=== PATIENT | female | born 1990 | race Caucasian/White ===

== ENCOUNTER 2020-07-01 17:29 | Emergency (ER) | payer SELFPAY ==
[2020-07-01 17:32] VITALS: BP 141/96; PULSE 72; RESP 15; TEMP 36.9; O2SAT 99; BMI 29.7
--- NOTE | 2020-07-01 18:32 | ED.BACK ---
HPI - Back Pain/Injury General Chief Complaint: Back Pain/Injury Stated Complaint: LOWER BACK PAIN Time Seen by Provider: 07/01/20 18:32 History of Present Illness HPI Narrative: patient complains of back pain for the last 3 days with no injury, there is no radiation of the pain no numbness or weakness no urinary symptoms no injury Related Data Previous Rx's Medication Instructions Recorded acetaminophen [Tylenol] 650 mg PO Q6H PRN #30 cap 07/01/20 cyclobenzaprine 5 mg PO TID PRN #14 tab 07/01/20 ibuprofen 600 mg PO Q6H PRN #20 tab 07/01/20 Allergies Allergy/AdvReac Type Severity Reaction Status Date / Time cefaclor [From Ceclor] Allergy Unknown HIVES Verified 07/01/20 17:55 Ceclor Allergy Unknown Hives Uncoded 07/01/20 17:55 Review of Systems Review of Systems: there is no headache, no neck pain, no chest pain, no abdominal pain, no changes to bowel or bladder no pain with urination, no numbness no weakness no tingling PMFSH Past Medical History Source: nursing notes reviewed Medical History (Updated 07/01/20 @ 18:41 by BREE Boone) No known health problems Social History Social History Smoking Status: Never smoker Use of substances other than those prescribed or required for medical reasons: No Advance Directives: No Advance Directives Information Provided: Yes Physical Exam Vital Signs and I&O and Narrative: Vital Signs and I&O: Vital Signs Temp 98.4 F 07/01/20 17:32 Pulse 72 07/01/20 17:32 Resp 15 07/01/20 17:32 BP 141/96 H 07/01/20 17:32 Pulse Ox 99 07/01/20 17:32 Intake & Output 07/01/20 07/01/20 07/02/20 06:59 18:59 06:59 Weight 76.204 kg Body Mass Index 29.7 the patient is A&O x3, no acute distress The head is normocephalic atraumatic The neck is supple and nontender Respiratory there is no respiratory distress Abdomen is soft and nontender The back has bilateral paraspinal lower lumbar soft tissue tenderness, no bony tenderness no CVA tenderness, skin is normal with no redness or swelling, no wounds no bruising The extremities are full range of motion x4 the neuro is a and O x3, no motor deficit, no numbness Discharge Plan Discharge Clinical Impression: Back pain Qualifiers: Back pain location: low back pain Chronicity: unspecified Back pain laterality: bilateral Sciatica presence: without sciatica Qualified Code(s): M54.5 - Low back pain Patient Disposition: Home, Self-Care Additional Instructions: follow with primary care doctor for possible physical therapy or ongoing treatment as needed Chiropractor, massage, acupuncture are often helpful Return any worse condition or concerns Prescriptions: New ibuprofen 600 mg tablet 600 mg PO Q6H PRN (Reason: pain) Qty: 20 RF: 0 acetaminophen [Tylenol] 325 mg capsule 650 mg PO Q6H PRN (Reason: pain) Qty: 30 RF: 0 cyclobenzaprine 5 mg tablet 5 mg PO TID PRN (Reason: muscle spasm) Qty: 14 RF: 0 Stand Alone Forms: Work/School Release Interventions: ED Discharge Assessment Last Done: 07/01/20 18:47 Discharge Date/Time: 07/01/20 18:47
== END 2020-07-01 18:47 | disposition home or self-care (01) ==
PROVIDERS: Emergency Provider Internal Medicine
DX: M54.42 Lumbago with sciatica, left side (principal); M54.41 Lumbago with sciatica, right side
CPT/HCPCS: 99283; 99284

== ENCOUNTER 2020-10-10 17:24 | Emergency (ER) | payer OTHER, SELFPAY ==
--- NOTE | 2020-10-10 | XR_ITS ---
EXAMINATION: XR FINGER, RIGHT CLINICAL INFORMATION: Thumb laceration COMPARISON: None TECHNIQUE: 3 plain film views of the right thumb. FINDINGS: Bones are normal anatomic alignment. I do not appreciate any acute displaced fracture. No cortical disruption or trabecular irregularity. The joint spaces do not appear to be abnormally widened or irregular. Surrounding soft tissues unremarkable. No radiopaque foreign body seen. XR/XR finger RT min 2V IMPRESSION: No acute bony abnormality.
[2020-10-10 19:27] VITALS: BP 152/71; PULSE 79; RESP 18; TEMP 36.4; O2SAT 99; BMI 30.2
--- NOTE | 2020-10-10 19:38 | ED.WOUNDLAC ---
HPI - Wound/Laceration General Chief Complaint: Wound/Laceration Stated Complaint: Laceration Time Seen by Provider: 10/10/20 19:20 Source: patient Mode of arrival: ambulatory Limitations: no limitations History of Present Illness HPI narrative: Patient comes emergency room complaining of a laceration to the right thumb in the palmar aspect. Patient states that she was slicing onions, and accidentally run her finger through the sharp edges of the slicer Related Data Previous Rx's Medication Instructions Recorded acetaminophen [Tylenol] 650 mg PO Q6H PRN #30 cap 07/01/20 cyclobenzaprine 5 mg PO TID PRN #14 tab 07/01/20 ibuprofen 600 mg PO Q6H PRN #20 tab 07/01/20 Allergies Allergy/AdvReac Type Severity Reaction Status Date / Time cefaclor [From Ceclor] Allergy Unknown HIVES Verified 10/10/20 19:27 Ceclor Allergy Unknown Hives Uncoded 07/01/20 17:55 Review of Systems Review of Systems: Constitutional : No Weight loss, No Fever, No Chills, No Night Sweats, No Fatigue, No Malaise ENT/Mouth : No Hearing loss, No Ear Pain, No Nasal Congestion, No Sinus Pain, No Hoarseness, No sore throat, No Rhinorrhea, No Swallowing Difficulty Eyes: No Eye Pain, No Swelling, No Redness, No Foreign Body, No Discharge, No Vision Changes Cardiovascular : No Chest Pain, No SOB, No Dyspnea on Exertion, No Orthopnea, No Edema, No Palpitations Respiratory : No Cough, No Sputum, No Wheezing, No Smoke Exposure, No Dyspnea Gastrointestinal : No Nausea, No Vomiting, No Diarrhea, No Constipation, No abdominal Pain, No Hematochezia, No Melena Genitourinary : no irregular bleeding, No Dysuria, No Urinary Frequency, No Hematuria, No Urinary Incontinence, No Urgency, No Flank Pain, No Urinary Flow Changes, No Hesitancy Musculoskeletal : No joint pain, No Myalgias, No Joint Swelling Skin : Laceration to thumb right hand palmar aspect Neuro : No Weakness, No Numbness, No Paresthesias, No Loss of Consciousness, No Dizziness, No Headache Psych : No Anxiety/Panic, No Depression, No SI/HI/AH/VH, No Social Issues, Heme/Lymph: No Bruising, No Bleeding,No Lymphadenopathy Endocrine : No Polyuria, No Polydipsia, No Temperature Intolerance PMF Past Medical History Medical History No known health problems Social History Social History Smoking Status: Never smoker Advance Directives: No Physical Exam Vital Signs: Vital Signs: Last Vital Signs Temp 97.5 F 10/10/20 19:27 Pulse 79 10/10/20 19:27 Resp 18 10/10/20 19:27 BP 152/71 H 10/10/20 19:27 Pulse Ox 99 10/10/20 19:27 Body Mass Index 30.2 Appearance: Alert. Oriented X3. No acute distress. Eyes: Pupils equal, round and reactive to light. ENT: Pharynx normal. Neck: Normal inspection. Neck supple. No lymph nodes noted. No crepitus CVS: Normal heart rate and rhythm. Pulses normal. Normal S1 and S2 Respiratory: No respiratory distress. Breath sounds normal. No Wheezing. No rales Abdomen: Soft and nontender. No rigidity. No distention. good BS x4 Skin: Patient has a triangular laceration/flap on the thumb of their right hand. Patient is able to oppose thumb to all fingers and flex the thumb Extremities: No lower extremity edema. No lower extremity edema. No Lacerations. No Rash Neuro: Oriented X 3. No motor deficit. No sensory deficit. Moving all extermities. No slurred speech. Course Course Course Narrative: Patient tolerated well her procedure, a digital block on the thumb was done 1st, patient received tetanus shot Procedures Laceration Laceration 1: Site: hand Side (If applicable): right Size (cm): 4 Description: flap and irregular Depth: simple, single layer Local Anesthetic: lidocaine 2% Amount of anesthesia used (mL): 6 Pre-repair: irrigated extensively Skin layer closed with: nylon Size (cm): 5-0 Number of sutures: 9 Technique: simple, interrupted Discharge Plan Discharge Clinical Impression: Laceration Patient Disposition: Home, Self-Care Instructions: Finger Laceration (ED) Additional Instructions: If you see any signs of infection such as redness, increased pain, increased swelling, fever, pus drainage, please return to the emergency room. The sutures need to be removed in 7-10 days. Please follow-up with your primary care physician tomorrow. If you have any worsening or new symptoms, please return to the emergency room or call 911 Prescriptions: No Action ibuprofen 600 mg tablet 600 mg PO Q6H PRN (Reason: pain) Qty: 20 RF: 0 acetaminophen [Tylenol] 325 mg capsule 650 mg PO Q6H PRN (Reason: pain) Qty: 30 RF: 0 cyclobenzaprine 5 mg tablet 5 mg PO TID PRN (Reason: muscle spasm) Qty: 14 RF: 0
[2020-10-10] MEDS: Lidocaine HCl 2 % MPF 5 ML VIAL 10 ML INFILTRATI (20:02)
[2020-10-10] MEDS: Acetaminophen 325 MG TABLET 650 MG PO (21:10)
== END 2020-10-10 21:29 | disposition home or self-care (01) ==
PROVIDERS: Emergency Provider Emergency Medicine
DX: S61.011A Laceration without foreign body of right thumb without damage to nail, initial encounter (principal); W27.8XXA Contact with other nonpowered hand tool, initial encounter; Y93.G1 Activity, food preparation and clean up; Y92.010 Kitchen of single-family (private) house as the place of occurrence of the external cause; Y99.9 Unspecified external cause status
CPT/HCPCS: 12002; 73140; 90471; 90715; 99283; 99284

== ENCOUNTER 2021-08-24 14:30 | Emergency (ER) | payer OTHER, SELFPAY ==
--- NOTE | 2021-08-24 | ECG_ITS ---
Test Reason : SOB Blood Pressure : / mmHG Vent. Rate : 091 BPM Atrial Rate : 091 BPM P-R Int : 154 ms QRS Dur : 078 ms QT Int : 358 ms P-R-T Axes : 058 065 032 degrees QTc Int : 440 ms Normal sinus rhythm Normal EKG When compared with ECG of 14-NOV-2016 03:24, No significant change was found Referred By: Generic ED Physician Electronically Signed By:DOREEN FIGUEROA
--- NOTE | ~2021-08-24 | XR_ITS ---
EXAMINATION: XR CHEST CLINICAL INFORMATION: Chest wall pain COMPARISON: November 14, 2016 TECHNIQUE: AP portable view of the chest was obtained. FINDINGS: No significant abnormality is noted involving the heart, lungs, mediastinum, bony thorax or soft tissues. XR/XR chest 1V IMPRESSION: No acute disease.
[2021-08-24 14:49] VITALS: PULSE 92; RESP 18; TEMP 36.9; O2SAT 96; BMI 30.2
[2021-08-24 15:52] LABS: Influenza A PCR NEGATIVE (Negative); Influenza B PCR NEGATIVE (Negative); Resp Syncy Virus RNA Qual PCR NEGATIVE (Negative); SARS COV2 PCR INHOUSE NEGATIVE (Negative)
--- NOTE | 2021-08-24 16:45 | ED_ITS ---
HPI - URI/Sore Throat General Chief Complaint: Upper Respiratory Symptoms Stated Complaint: cough chest congestion back pain Time Seen by Provider: 08/24/21 16:45 Source: patient Mode of arrival: ambulatory History of Present Illness HPI Narrative: 30-year-old female no significant past medical history presenting to the ED complaining of nonproductive cough, rhinorrhea, nasal congestion, chest discomfort when coughing x2 days. Denies SOB, fever, chills, pedal edema, calf tenderness, recent travel, sick contacts MD elicited complaint: cough Onset (ago): day(s) Consistency: constant Severity: mild Related Data Previous Rx's Medication Instructions Recorded acetaminophen 325 mg capsule 650 mg PO Q6H PRN #30 cap 07/01/20 (Tylenol) cyclobenzaprine 5 mg tablet 5 mg PO TID PRN #14 tab 07/01/20 ibuprofen 600 mg tablet 600 mg PO Q6H PRN #20 tab 07/01/20 benzonatate 200 mg capsule 200 mg PO TID PRN #20 cap 08/24/21 fluticasone propionate 50 2 spray INTRANASAL DAILY #16 g 08/24/21 mcg/actuation nasal spray,suspension (Flonase Allergy Relief) Allergies Allergy/AdvReac Type Severity Reaction Status Date / Time [facility] [[facility] Allergy Unknown HIVES Verified 10/10/20 19:27 Ceclor Allergy Unknown Hives Uncoded 07/01/20 17:55 Review of Systems Review of Systems: Constitutional: No Fever, No Chills,No Fatigue, No Malaise ENT/Mouth:No Ear Pain, + Nasal Congestion, No Sinus Pain, No Hoarseness, No sore throat, + Rhinorrhea Eyes: No Eye Pain, No Swelling, No Redness Cardiovascular: + Chest discomfort when coughing, No SOB,No Edema, No Palpitations Respiratory: + Cough, No Sputum, No Wheezing, No Dyspnea Gastrointestinal: No Nausea, No Vomiting, No Diarrhea, No Constipation, No Abdominal pain Genitourinary: No Dysuria, No Urinary Frequency, No Hematuria, No Urinary Incontinence, No Urgency, No Flank Pain, No Urinary Flow Changes, No Hesitancy Musculoskeletal: No joint pain, No Myalgias, No Joint Swelling Skin: No Skin Lesions, No rash Yes all other systems are reviewed and are negative PMFSH Past Medical History Attestation statement: The following information was validated with the patient. Medical History No known health problems Social History Social History Advance Directives: No Advance Directives Information Provided: Yes Physical Exam Vital Signs: Vital Signs: Last Vital Signs Temp 98.4 F 08/24/21 14:49 Pulse 92 08/24/21 14:49 Resp 18 08/24/21 14:49 Pulse Ox 96 08/24/21 14:49 BMI result Body Mass Index 30.2 Const: General: cooperative, healthy appearing, no acute distress, well developed, alert and awake Orientation/consciousness: patient oriented x3 Limitations: no limitations HENMT: Head: Yes normal to inspection Ears: hearing grossly normal bilaterally General nose exam: Normal external nose present Face and sinus: Yes normal facial exam Mouth: Normal oral and palatal mucosa present Throat: Yes posterior oropharynx normal, Yes tonsils normal, Yes uvula midline, No peritonsillar mass and No uvular edema Eyes: General: appearance normal, both eyes and all related structures EOM: EOMs intact bilaterally Neck: Neck: Yes normal visual inspection, Yes no meningeal signs, Yes trachea midline and Yes supple Resp: Effort & Inspection: normal respiratory effort Auscultation: clear to auscultation bilaterally, no rales, no rhonchi and no wheezes Cardio: Rate: regular rate Heart sounds: S1 normal heart sound present and S2 normal heart sound present GI: Inspection: Yes normal to inspection Palpation (GI): Soft to palpation, nontender and no guarding Skin: Rashes: no rashes Wounds: no wounds Neuro: General: patient oriented x3 and no meningeal signs Gait exam (Neuro): Normal gait present Extrem: General: Yes normal to inspection, Yes no pedal edema and Yes no calf tenderness MDM - URI/Sore Throat MDM Narrative Medical decision making narrative: 30-year-old female no significant past medical history presenting to the ED complaining of nonproductive cough, rhinorrhea, nasal congestion, chest discomfort when coughing x2 days. on exam vital signs stable, NAD/well-appearing, nontoxic, lungs CTA, or pharynx WNL, no pedal edema/calf tenderness. Concern for viral syndrome/COVID-19 vs bronchitis. Rule out pneumonia. Low concern for ACS / PE plan: COVID-19 testing, CXR Differential Diagnosis Differential diagnosis: Likely upper respiratory infection, viral infection, bronchitis, influenza and pharyngitis Medical Records Attestation: I reviewed the patient's medical records. Lab Data Attestation: I reviewed the patient's lab results. Labs: Lab Results 08/24/21 Range/Units 15:02 Influenza Type A (PCR) NEGATIVE (Negative) Influenza Type B (PCR) NEGATIVE (Negative) RSV RNA Qual (PCR) NEGATIVE (Negative) SARS-CoV-2 RNA (RT-PCR) NEGATIVE (Negative) Discharge Plan Discharge Clinical Impression: Viral infection Patient Disposition: Home, Self-Care Instructions: Viral Syndrome (ED) Additional Instructions: you tested negative for COVID-19, the flu, and RSV Her chest x-ray was unremarkable Luis Armando Ybarra for cough, take as needed, Flonase is a nasal decongestant Make sure you are staying hydrated and rest Prescriptions: New benzonatate 200 mg capsule 200 mg PO TID PRN (Reason: cough) Qty: 20 RF: 0 fluticasone propionate [Flonase Allergy Relief] 50 mcg/actuation spray,suspension 2 spray intranasal DAILY Qty: 16 RF: 0 No Action ibuprofen 600 mg tablet 600 mg PO Q6H PRN (Reason: pain) Qty: 20 RF: 0 acetaminophen [Tylenol] 325 mg capsule 650 mg PO Q6H PRN (Reason: pain) Qty: 30 RF: 0 cyclobenzaprine 5 mg tablet 5 mg PO TID PRN (Reason: muscle spasm) Qty: 14 RF: 0 Referrals: Physician,None [Primary Care Provider] - 2 days Stand Alone Forms: Work/School Release
== END 2021-08-24 16:57 | disposition home or self-care (01) ==
PROVIDERS: Emergency Provider Emergency Medicine Emergency Medical Services
DX: B34.9 Viral infection, unspecified (principal); Z20.822 Contact with and (suspected) exposure to COVID-19
CPT/HCPCS: 0241U; 36415; 71045; 93005; 99283; 99284

== ENCOUNTER 2021-09-22 16:25 | Emergency (ER) | payer OTHER, SELFPAY ==
[2021-09-22 16:53] VITALS: BP 133/83; PULSE 92; RESP 18; TEMP 36.8; O2SAT 98
[2021-09-22 16:54] LABS: COVID-19 Test Positive (Negative); IDNOW Serial# 9DD0AD1C
[2021-09-22 17:11] VITALS: BMI 29.2
--- NOTE | 2021-09-22 18:10 | ED_ITS ---
HPI - URI/Sore Throat General Chief Complaint: Upper Respiratory Symptoms Stated Complaint: SORE THROAT EAR PAIN FEVER Time Seen by Provider: 09/22/21 18:02 Source: patient Mode of arrival: ambulatory Limitations: no limitations History of Present Illness HPI Narrative: 31 y/o healthy female presenting with sore throat and body aches that started yesterday. She is unvaccinated for COVID. Taken at home COVID test yesterday that was negative. She feels like she has strep throat. She reports pain went eating or drinking. She reports swollen lymph nodes in her neck. She has been around her boyfriend who is COVID positive. MD elicited complaint: sore throat and other (body aches) Onset (ago): day(s) (1) Consistency: constant Severity: moderate Description of mucous: clear Able to tolerate fluids by mouth: Yes Exacerbating factors: swallowing Relieving factors: NSAID Context: sick contacts Associated symptoms: fever, chills, diaphoresis, headache, nasal congestion and sore throat Treatments prior to arrival: none Related Data Previous Rx's Medication Instructions Recorded acetaminophen 325 mg capsule 650 mg PO Q6H PRN #30 cap 07/01/20 (Tylenol) cyclobenzaprine 5 mg tablet 5 mg PO TID PRN #14 tab 07/01/20 ibuprofen 600 mg tablet 600 mg PO Q6H PRN #20 tab 07/01/20 benzonatate 200 mg capsule 200 mg PO TID PRN #20 cap 08/24/21 fluticasone propionate 50 2 spray INTRANASAL DAILY #16 g 08/24/21 mcg/actuation nasal spray,suspension (Flonase Allergy Relief) Allergies Allergy/AdvReac Type Severity Reaction Status Date / Time cefaclor [From [facility]] Allergy Unknown HIVES Verified 09/22/21 17:11 Ceclor Allergy Unknown Hives Uncoded 07/01/20 17:55 Review of Systems Review of Systems: Constitutional: No Fever, No Chills ENT/Mouth: + sore throat, No Rhinorrhea, + Painful swallowing Difficulty Cardiovascular: No Chest Pain, No SOB Respiratory: No Cough, No Sputum, No Wheezing, No dyspnea Gastrointestinal: No Nausea, No Vomiting,No abdominal Pain Musculoskeletal: No joint pain, + Myalgias Skin: No Skin Lesions, No rash Neuro: No Weakness, No Dizziness, + Headache Heme/Lymph: No Lymphadenopathy PMFSH Past Medical History Medical History No known health problems Social History Social History Advance Directives: Yes Advance Directives Information Provided: Yes Advance Directives on File: No Physical Exam Vital Signs: Vital Signs: Last Vital Signs Temp 98.3 F 09/22/21 16:53 Pulse 92 09/22/21 16:53 Resp 18 09/22/21 16:53 BP 133/83 09/22/21 16:53 Pulse Ox 98 09/22/21 16:53 BMI result Body Mass Index 29.2 Appearance: Alert. Oriented X3. No acute distress. Eyes: Pupils equal, round and reactive to light. ENT: Pharynx with moderate posterior erythema without tonsillar swelling or exudate. Uvula midline. No voice and handling secretions normally. Normal TMs bilaterally Neck: Normal inspection. Neck supple. Shotty submandibular lymph adenopathy. CVS: Normal heart rate and rhythm. Pulses normal. Respiratory: No respiratory distress. Breath sounds normal. Skin: Skin warm and dry. Normal skin color. Normal skin turgor. No rashes. Extremities: Normal inspection, normal range of motion x4 Neuro: Oriented X 3. Grossly normal, nonfocal Course Course Course Narrative: 31-year-old female who is unvaccinated for COVID presents to the ER with COVID symptoms after known exposure. She took at home test yesterday that was negative. Today a rapid test was positive. She was counseled on her diagnosis. Her exam and vital signs are reassuring. She was counseled on diagnosis, expected course and management. Stable for discharge home with supportive care. MDM - URI/Sore Throat Lab Data Labs: Lab Results 09/22/21 Range/Units 16:42 COVID-19 ([facility]) Positive A (Negative) COVID-19 Clin Com See Note Critical Care Time Critical Care Time Critical Care Time: No Discharge Plan Discharge Clinical Impression: COVID-19 Patient Disposition: Home, Self-Care Instructions: Covid-19 Viral Syndrome and Novel Coronavirus (ED) Hey/Ath Additional Instructions: You were found to be COVID-19 POSITIVE today. Your oxygen levels were normal. Recommend over the counter Chloraseptic spray and Cepacol lozenges as needed for sore throat. Rest. Drink plenty of fluids. Do not go out in public for the next 10 days. Take over the counter cold/flu medications as needed for your symptoms. Take Tylenol and/or Motrin as needed for fevers and body aches. Follow up with your doctor this week. If you shortness of breath worsens , if you develop difficulty breathing or any other concerning symptom come back to the ER for further evaluation. Prescriptions: No Action ibuprofen 600 mg tablet 600 mg PO Q6H PRN (Reason: pain) Qty: 20 RF: 0 acetaminophen [Tylenol] 325 mg capsule 650 mg PO Q6H PRN (Reason: pain) Qty: 30 RF: 0 cyclobenzaprine 5 mg tablet 5 mg PO TID PRN (Reason: muscle spasm) Qty: 14 RF: 0 benzonatate 200 mg capsule 200 mg PO TID PRN (Reason: cough) Qty: 20 RF: 0 fluticasone propionate [Flonase Allergy Relief] 50 mcg/actuation spray,suspension 2 spray intranasal DAILY Qty: 16 RF: 0 Stand Alone Forms: Work/School Release Interventions: ED Discharge Assessment Last Done: 09/22/21 18:30 Discharge Date/Time: 09/22/21 18:31
== END 2021-09-22 18:31 | disposition home or self-care (01) ==
PROVIDERS: Emergency Provider Emergency Medicine Emergency Medical Services
DX: U07.1 COVID-19 (principal)
CPT/HCPCS: 36415; 87635; 99282; 99283

== ENCOUNTER 2022-11-10 16:08 | Emergency (ER) | payer OTHER, SELFPAY ==
[2022-11-10 16:17] VITALS: BP 129/79; PULSE 106; RESP 18; TEMP 36.8; O2SAT 99; BMI 29.2
--- NOTE | 2022-11-10 16:41 | ED.URI ---
HPI - URI/Sore Throat General Chief Complaint: Upper Respiratory Symptoms Stated Complaint: sore throat Time Seen by Provider: 11/10/22 16:26 Source: patient Mode of arrival: ambulatory Limitations: no limitations History of Present Illness HPI Narrative: Patient is a 32-year-old male who presents to emergency department for evaluation of upper respiratory symptoms. Reports symptom onset 3-4 days ago. Sore throat that has become progressively worse, nasal congestion, bilateral ear pain. Denies fevers, chills, decreased hearing, drainage from the ear, difficulty swallowing, chest pain, shortness of breath, cough, nausea, vomiting, abdominal pain. Related Data Previous Rx's Medication Instructions Recorded acetaminophen 325 mg capsule 650 mg PO Q6H PRN pain #30 caps 07/01/20 (Tylenol) cyclobenzaprine 5 mg tablet 5 mg PO TID PRN muscle spasm #14 07/01/20 tabs ibuprofen 600 mg tablet 600 mg PO Q6H PRN pain #20 tabs 07/01/20 benzonatate 200 mg capsule 200 mg PO TID PRN cough #20 caps 08/24/21 fluticasone propionate 50 2 spray intranasal DAILY #16 grams 08/24/21 mcg/actuation nasal spray,suspension (Flonase Allergy Relief) amoxicillin 875 mg tablet 875 mg PO BID #14 tabs 11/10/22 Allergies Allergy/AdvReac Type Severity Reaction Status Date / Time cefaclor [From [facility]] Allergy Unknown HIVES Verified 09/22/21 17:11 Ceclor Allergy Unknown Hives Uncoded 07/01/20 17:55 Review of Systems Review of Systems: Constitutional: No fever. No chills. No weakness. No fatigue. ENT/ Mouth: Positive Ear Pain, positive Nasal Congestion, positive sore throat, No Rhinorrhea, No Swallowing Difficulty Skin: No rash or itching. Cardiovascular: No chest pain. No palpitations. Respiratory: No shortness of breath. No cough. No sputum production. Gastrointestinal: No nausea. No vomiting. No diarrhea. No abdominal pain. Genitourinary: No burning micturition. No urinary frequency. Neurologic: No headache. No dizziness. No syncope. No numbness or tingling in the extremities. Musculoskeletal: No muscle pain. No back pain. No joint pain or stiffness. Yes all other systems are reviewed and are negative PMFSH Past Medical History Attestation statement: The following information was validated with the patient. Source: old records reviewed Medical History No known health problems Social History Social History Advance Directives: No Advance Directives Information Provided: No Physical Exam Vital Signs: Vital Signs: Last Vital Signs Temp 98.3 F 11/10/22 16:17 Pulse 106 H 11/10/22 16:17 Resp 18 11/10/22 16:17 BP 129/79 11/10/22 16:17 Pulse Ox 99 11/10/22 16:17 O2 Del Method 11/10/22 16:17 BMI result Body Mass Index 29.2 Appearance: Alert.?Oriented to person, place and time. No acute distress.?Normal affect. Eyes: Pupils equal, round and reactive to light.? ENT: TM normal on the right, left TM erythematous with mild bulging. Pharynx erythematous without exudates or tonsillar hypertrophy, uvula is midline. No trismus. No drooling. Neck: Normal inspection.? Neck supple.??No cervical adenopathy CVS: Heart sounds normal. Normal heart rate and rhythm.? Pulses normal.?? Respiratory: No respiratory distress.? Lung sounds clear to auscultation bilaterally?? Abdomen: Soft and non-tender. Normoactive bowel sounds. Skin: Skin warm and dry.? Normal skin color.? ? Extremities: No lower extremity edema.? Neuro: Moves all extremities spontaneously. Sensation intact bilaterally. No motor deficits. Ambulates with normal steady gait. Medical Decision Making Medical Decision Making MDM Narrative: Patient is a 32-year-old female with no reported past medical history, presenting for evaluation of upper respiratory symptoms. At this time history and physical exam not consistent with pneumonia. Well-appearing, nontoxic, afebrile, no tachypnea/hypoxia. She is mildly tachycardic suspect this is due to pain. Speaking clear full sentences, ambulatory with steady gait. COVID-19/ influenza/RSV testing are pending at time of discharge, advised that she will be contacted by phone to these result as positive. Strep a testing negative. Physical examination consistent with acute otitis media of the left. Discussed conservative treatment including rest, hydration, Tylenol/ibuprofen as needed for fever and body aches, saline nasal spray, humidifier, prescription for antibiotics sent to patient's pharmacy. Advised to follow-up with primary care provider as needed, discussed reasons to return back to the emergency department. All questions were answered. Patient discharged home in stable condition. Differential Diagnosis Differential Diagnoses: The differential diagnosis associated with the presentation includes (COVID-19, influenza, parainfluenza virus, adenovirus, pneumonia, peritonsillar abscess, retropharyngeal abscess) Lab Data Labs: Lab Results 11/10/22 Range/Units 16:27 S. pyogenes GrpA LB Negative (Negative) Discharge Plan Discharge Clinical Impression: Upper respiratory infection Acute otitis media Qualifiers: Laterality: left Recurrence: non-recurrent Spontaneous tympanic membrane rupture: without spontaneous rupture Patient Disposition: Home, Self-Care Instructions: Ear Infection (ED), Upper Respiratory Infection (ED) Additional Instructions: Testing today for COVID-19, flu, and RSV are pending. Strep testing was negative. As discussed, you do have a urine infection on the left, prescription for antibiotics was sent to your pharmacy. Please to not insert anything into the ear canal such as Q-tips, this may increase the risk of rupture to your ear drum. Please be sure to stay well hydrated, rest over the next couple of days. You can take ibuprofen 200 mg, 3 tablets (600mg) every 6-8 hours as needed for pain, in addition to Tylenol 500 mg, 2 tablets (1,000mg) every 4-6 hours as needed for pain, but not to exceed 3 doses daily (3,000mg).? Follow-up with your primary care provider as needed for persistent symptoms. Prescriptions: New amoxicillin 875 mg tablet 875 mg PO BID Qty: 14 0RF No Action ibuprofen 600 mg tablet 600 mg PO Q6H PRN (Reason: pain) Qty: 20 0RF acetaminophen [Tylenol] 325 mg capsule 650 mg PO Q6H PRN (Reason: pain) Qty: 30 0RF cyclobenzaprine 5 mg tablet 5 mg PO TID PRN (Reason: muscle spasm) Qty: 14 0RF Rx Instructions: this medication may cause drowsiness, no driving for 8 hours after taking benzonatate 200 mg capsule 200 mg PO TID PRN (Reason: cough) Qty: 20 0RF fluticasone propionate [Flonase Allergy Relief] 50 mcg/actuation spray,suspension 2 spray intranasal DAILY Qty: 16 0RF Rx Instructions: administer into each nostril Referrals: Physician,None [Primary Care Provider] -
[2022-11-10 16:46] LABS: IDNOW Serial# 6674DD1D; Strep A Nucleic Acid Negative (Negative)
[2022-11-10 17:47] LABS: Influenza A PCR NEGATIVE (Negative); Influenza B PCR NEGATIVE (Negative); Resp Syncy Virus RNA Qual PCR NEGATIVE (Negative); SARS COV2 PCR INHOUSE NEGATIVE (Negative)
== END 2022-11-10 18:03 | disposition home or self-care (01) ==
PROVIDERS: Emergency Provider Emergency Medicine
DX: J06.9 Acute upper respiratory infection, unspecified (principal); H66.92 Otitis media, unspecified, left ear; J02.9 Acute pharyngitis, unspecified; Z20.822 Contact with and (suspected) exposure to COVID-19; Z20.828 Contact with and (suspected) exposure to other viral communicable diseases
CPT/HCPCS: 0241U; 87651; 99282; 99283

== ENCOUNTER 2023-10-28 21:09 | Emergency (ER) | payer SELFPAY ==
--- NOTE | 2023-10-28 21:10 | ECG_ITS ---
Test Reason : chest pain Blood Pressure : / mmHG Vent. Rate : 095 BPM Atrial Rate : 095 BPM P-R Int : 154 ms QRS Dur : 080 ms QT Int : 352 ms P-R-T Axes : 043 076 -08 degrees QTc Int : 442 ms Normal sinus rhythm Nonspecific T wave abnormality Abnormal ECG When compared with ECG of 24-AUG-2021 14:55, No significant change was found Referred By: Generic ED Physician Electronically Signed By:DOREEN FIGUEROA
[2023-10-28 21:28] VITALS: BP 143/86; PULSE 94; RESP 18; TEMP 36.9; O2SAT 97; BMI 25.1
[2023-10-28 22:12] LABS: COVID-19 Test Negative (Negative); IDNOW Serial# 152EDE1D
[2023-10-28 22:13] LABS: IDNOW Serial# 08D9AD1C; Influenza A Positive (Negative); Influenza B2 Negative (Negative)
--- NOTE | 2023-10-28 23:28 | ED.URI ---
HPI - URI/Sore Throat General Chief Complaint: Upper Respiratory Symptoms Stated Complaint: chest pain Time Seen by Provider: 10/28/23 23:07 Source: patient Mode of arrival: ambulatory Limitations: no limitations History of Present Illness HPI Narrative: Patient has upper respiratory symptoms with cold cough body aches for last 3 days no other family member sick not been vaccinated against flu Related Data Previous Rx's Medication Instructions Recorded acetaminophen 325 mg capsule 650 mg (2 x 325 mg) PO Q6H PRN 07/01/20 (Tylenol) pain #30 caps cyclobenzaprine 5 mg tablet 5 mg PO TID PRN muscle spasm #14 07/01/20 tabs ibuprofen 600 mg tablet 600 mg PO Q6H PRN pain #20 tabs 07/01/20 benzonatate 200 mg capsule 200 mg PO TID PRN cough #20 caps 08/24/21 fluticasone propionate 50 2 spray intranasal DAILY #16 grams 08/24/21 mcg/actuation nasal spray,suspension (Flonase Allergy Relief) amoxicillin 875 mg tablet 875 mg PO BID #14 tabs 11/10/22 benzonatate 200 mg capsule 200 mg PO TID PRN cough #30 caps 10/28/23 Allergies Allergy/AdvReac Type Severity Reaction Status Date / Time cefaclor [From Ceclor] Allergy Unknown HIVES Verified 09/22/21 17:11 Ceclor Allergy Unknown Hives Uncoded 07/01/20 17:55 Review of Systems Review of Systems: Yes all other systems are reviewed and are negative PMFSH Past Medical History Medical History No known health problems Social History Social History Advance Directives: No Advance Directives Information Provided: No Physical Exam Vital Signs: Vital Signs: Last Vital Signs Temp 98.5 F 10/28/23 21:28 Pulse 94 10/28/23 21:28 Resp 18 10/28/23 21:28 BP 143/86 H 10/28/23 21:28 Pulse Ox 97 10/28/23 21:28 O2 Del Method Room Air 10/28/23 21:28 BMI result Body Mass Index 25.1 Appearance: Alert. Oriented X3. No acute distress. ENT: Pharynx normal. Oral Mucosa moist Neck: Normal inspection. Neck supple. CVS: Normal heart rate and rhythm. Pulses normal. Respiratory: No respiratory distress. Equal air entry bilateral, no wheezing/rales/rhonchi Abdomen: Soft and nontender. Bowel sounds are present, Skin: Skin warm and dry. Normal skin color. Normal skin turgor. Medical Decision Making Lab Data MDM Lab Attestation statement: I reviewed the patient's lab results. Labs: Lab Results 10/28/23 Range/Units 21:42 COVID-19 ([facility]) Negative (Negative) COVID-19 Clin Com See Note Influenza Type A (LB) Positive A (Negative) Influenza Type B (LB) Negative (Negative) Influenza A & B Note See Note Discharge Plan Discharge Clinical Impression: Influenza Patient Disposition: Home, Self-Care Instructions: Influenza (ED) Additional Instructions: Drink plenty of fluids Tylenol/Motrin for body aches and fever Tessalon for cough drops Social distancing as advised Prescriptions: New benzonatate 200 mg capsule 200 mg PO TID PRN (Reason: cough) Qty: 30 0RF No Action ibuprofen 600 mg tablet 600 mg PO Q6H PRN (Reason: pain) Qty: 20 0RF acetaminophen [Tylenol] 325 mg capsule 650 mg PO Q6H PRN (Reason: pain) Qty: 30 0RF cyclobenzaprine 5 mg tablet 5 mg PO TID PRN (Reason: muscle spasm) Qty: 14 0RF Rx Instructions: this medication may cause drowsiness, no driving for 8 hours after taking benzonatate 200 mg capsule 200 mg PO TID PRN (Reason: cough) Qty: 20 0RF fluticasone propionate [Flonase Allergy Relief] 50 mcg/actuation spray,suspension 2 spray intranasal DAILY Qty: 16 0RF Rx Instructions: administer into each nostril amoxicillin 875 mg tablet 875 mg PO BID Qty: 14 0RF Stand Alone Forms: Work/School Release
[2023-10-28] MEDS: Benzonatate 100 MG CAPSULE 200 MG PO (23:44)
== END 2023-10-28 23:47 | disposition home or self-care (01) ==
PROVIDERS: Emergency Provider Internal Medicine
DX: R07.89 Other chest pain (principal); R05.9 Cough, unspecified; M79.10 Myalgia, unspecified site; Z11.52 Encounter for screening for COVID-19; Z79.899 Other long term (current) drug therapy
CPT/HCPCS: 87502; 87635; 93005; 99283; 99284

== ENCOUNTER → 2023-10-28 21:10 | Outpatient (BNV) | payer MEDICAID, SELFPAY | PROVIDERS: Emergency Provider Internal Medicine; Visit Provider Internal Medicine | DX: R07.9 Chest pain, unspecified (principal); R94.31 Abnormal electrocardiogram [ECG] [EKG] | CPT/HCPCS: 93010 ==